=== PATIENT | female | born 1995 | race Caucasian/White ===

== ENCOUNTER 2017-11-30 19:10 | Emergency (ER) | payer OTHER ==
[2017-11-30] MEDS ORDERED: Rabies Vaccine (RabAvert)* 2.5 UNITS VIAL IM ONE (20:37)
[2017-11-30] MEDS ORDERED: Rabies Immune Globulin 10 ML* 150 UNIT/ML VIAL IM ONE (20:37)
--- NOTE | 2017-11-30 20:39 | ED ---
Bite Injury/Animal - HPI Summary HPI Summary: 22-year-old female presents with potential rabies exposure 3 days ago. She states that there was a bat and she and her housemate caught it in a room. States she went to sleep and the bat was found in a different room. She has hole in her ceiling that a bat could have come in through without her knowing. her roommate was required to have the rabies vaccine by the health department. Her tetanus was 2 years ago. [facility]. No medical conditions. No allergies to medication. - History of Current Complaint Chief Complaint: EDAnimalBite Stated Complaint: RABIES EXPOSURE Time Seen by Provider: 11/30/17 20:32 Pain Intensity: 0 - Allergies/Home Medications Allergies/Adverse Reactions: Allergies Allergy/AdvReac Type Severity Reaction Status Date / Time No Known Allergies Allergy Verified 11/30/17 19:17 PMH/Surg Hx/FS Hx/Imm Hx Endocrine/Hematology History: Denies: Hx Anticoagulant Therapy Cardiovascular History: Denies: Hx Myocardial Infarction Infectious Disease History: No Infectious Disease History: Denies: Traveled Outside the in Last 30 Days - Family History Known Family History: Negative: Diabetes - Social History Alcohol Use: Occasionally Substance Use Type: Reports: None Smoking Status (MU): Never Smoked Tobacco Review of Systems Negative: Fever Negative: Chest Pain Negative: Shortness Of Breath Positive: Other - bat exposure All Other Systems Reviewed And Are Negative: Yes Physical Exam Triage Information Reviewed: Yes Vital Signs On Initial Exam: Initial Vitals Temp Pulse Resp BP Pulse Ox 98 F 56 16 97/62 100 11/30/17 19:17 11/30/17 19:17 11/30/17 19:17 11/30/17 19:17 11/30/17 19:17 Vital Signs Reviewed: Yes Appearance: Positive: Well-Appearing Skin: Positive: Warm, Dry Head/Face: Positive: Normal Head/Face Inspection Eyes: Positive: Normal, Conjunctiva Clear ENT: Positive: Pharynx normal Respiratory/Lung Sounds: Positive: Clear to Auscultation, Breath Sounds Present Cardiovascular: Positive: Normal, RRR Musculoskeletal: Positive: Normal Neurological: Positive: Normal Psychiatric: Positive: Normal Diagnostics - Vital Signs Vital Signs Temp Pulse Resp BP Pulse Ox 11/30/17 19:17 98 F 56 16 97/62 100 - Laboratory Lab Statement: Any lab studies that have been ordered have been reviewed, and results considered in the medical decision making process. Bite Injury Course/Dx - Course Course Of Treatment: 22-year-old female presents with potential rabies exposure 3 days ago. She states that there was a bat and she and her housemate caught it in a room. States she went to sleep and the bat was found in a different room. She has hole in her ceiling that a bat could have come in through without her knowing. her roommate was required to have the rabies vaccine by the health department. Her tetanus was 2 years ago. [facility] is [facility]. No medical conditions. No allergies to medication. Normal physical exam. gave rabies vaccine and immunoglobin per health Department. Patient understands agrees with plan. - Diagnoses Differential Diagnosis/HQI/PQRI: Positive: Rabies Exposure, Other - bite Provider Diagnosis: Exposure to bat without known bite Discharge - Sign-Out/Discharge Documenting (check all that apply): Patient Departure - Discharge Plan Condition: Good Disposition: HOME Patient Education Materials: Rabies Vaccine (ED) Referrals: No Primary Care Phys,NOPCP [Primary Care Provider] - Additional Instructions: Will need rabies vaccine at day 3, 7, 14 you were given immunoglobulin in ED Return to ED if develop any new or worsneing symptoms - Billing Disposition and Condition Condition: GOOD Disposition: Home
[2017-11-30 22:12] VITALS: BP 103/68
== END 2017-11-30 22:12 | disposition home or self-care (01) ==
LOC: ED 19:10
DX: Z20.3 Contact with and (suspected) exposure to rabies (principal)
CPT/HCPCS: 90375; 90675; 96372; 99281